=== PATIENT | female | born 1990 | race Caucasian/White ===

== ENCOUNTER 2021-01-19 14:42 | Emergency (ER) | payer OTHER ==
[~2021-01-19] VITALS: Ht 157.5 cm; Wt 66.9 kg
[2021-01-19] MEDS ORDERED: prenatal (15:05)
[2021-01-19] MEDS ORDERED: ZYRTTAB8 PO (15:05)
[2021-01-19 15:35] LABS: BASO % 0.7 % (0.0-1.0); EOS # 0.2 10^3/uL (0.0-0.5); EOS % 5.2 % (0.0-3.0); HEMATOCRIT 40.2 % (36.0-47.0); HEMOGLOBIN 13.3 g/dl (12.0-15.5); LYMPH # 1.6 10^3/uL (1.5-5.0); LYMPH % 35.5 % (24.0-44.0); MEAN CORPUSCULAR HEMOGLOBIN 28.7 pg (27.0-33.0); MEAN CORPUSCULAR HGB CONC 33.1 g/dl (32.0-36.5); MEAN CORPUSCULAR VOLUME 86.6 fl (80.0-96.0); MONO # 0.5 10^3/uL (0.0-0.8); MONO % 10.9 % (2.0-8.0); NEUTROPHILS # 2.1 10^3/uL (1.5-8.5); NEUTROPHILS % 47.5 % (36.0-66.0); PLATELET COUNT, AUTOMATED 214 10^3/uL (150-450); RED BLOOD COUNT 4.64 10^6/uL (4.00-5.40); WHITE BLOOD COUNT 4.4 10^3/uL (4.0-10.0)
[2021-01-19 16:05] LABS: BLOOD UREA NITROGEN 10 MG/DL (7-18); CALCIUM LEVEL 8.5 MG/DL (8.5-10.1); CARBON DIOXIDE LEVEL 30 MEQ/L (21-32); CHLORIDE LEVEL 107 MEQ/L (98-107); GLOMERULAR FILTRATION RATE > 60.0 (>60); GLUCOSE, FASTING 82 MG/DL (70-100); HCG, SERUM QUANTITATIVE 2 MIU/ML; POTASSIUM SERUM 3.6 MEQ/L (3.5-5.1); SODIUM LEVEL 139 MEQ/L (136-145)
--- NOTE | 2021-01-19 18:30 | REP ---
INDICATION: bleeding. COMPARISON: None. TECHNIQUE: Transvesical and transvaginal FINDINGS: The uterus measures 8.3 x 3.8 x 5.6 cm. There are no masses. The endometrial echo complex is unremarkable appearing measuring 1 cm in its greatest thickness. The right ovary measures 3.3 x 1.4 x 2.5 cm and is within normal limits in RI 0.71. Incidental note is made of an involuted follicle within the right ovary measuring a cm. Left ovary measures 4 x 1 x 1.7 cm and is within normal limits with an RI 0.56. Urinary bladder measures 5 x 2 x 3 cm. IMPRESSION: Unremarkable pelvic ultrasound <Electronically signed by Johnny Mancera > 01/19/21 [id number]
[2021-01-19 19:16] VITALS: BP 128/62
== END 2021-01-19 19:17 | disposition home or self-care (01) ==
LOC: M ED 14:42
DX: O20.0 Threatened abortion (principal); Z3A.00 Weeks of gestation of pregnancy not specified; O24.119 Pre-existing type 2 diabetes mellitus, in pregnancy, unspecified trimester

== ENCOUNTER → 2021-01-21 | Outpatient (CLI) | payer OTHER ==
[~2021-01-21] MED LIST: ZYRTTAB8 PO; prenatal
== END ==
LOC: M LAB 17:03
PROVIDERS: ATTEND Physician Assistant
DX: O20.0 Threatened abortion (principal)

== ENCOUNTER 2021-10-30 13:15 | Inpatient (IN) | payer OTHER ==
[~2021-10-30] VITALS: Ht 157.5 cm; Wt 72.9 kg
[2021-10-30] VITALS (16 sets, daily range): BP systolic 118–151; BP diastolic 69–89
[2021-10-30] MEDS ORDERED: ACET325C5 PO (13:58)
[2021-10-30] MEDS ORDERED: HOME MED LIST COMPLETE! XX SCH (14:00)
[2021-10-30] MEDS ORDERED: PRENTAB9 PO (14:07)
[2021-10-30] MEDS ORDERED: ACET500P3 PO (14:07)
[2021-10-30] MEDS ORDERED: METHYLERGONOVINE MALEATE 0.2 MG/ML VIAL (J2210) IM PRN (15:15)
[2021-10-30] MEDS ORDERED: OXYTOCIN DRIP 30 UNITS in IV 1 EA IV PRN (15:15)
[2021-10-30] MEDS ORDERED: LIDOCAINE 1% MDV 20ML VIAL INFIL PRN (15:15)
[2021-10-30 16:10] LABS: HEMATOCRIT 42.3 % (36.0-47.0); HEMOGLOBIN 13.9 g/dl (12.0-15.5); MEAN CORPUSCULAR HEMOGLOBIN 29.1 pg (27.0-33.0); MEAN CORPUSCULAR HGB CONC 32.9 g/dl (32.0-36.5); MEAN CORPUSCULAR VOLUME 88.7 fl (80.0-96.0); PLATELET COUNT, AUTOMATED 106 10^3/uL (150-450); RED BLOOD COUNT 4.77 10^6/uL (4.00-5.40); WHITE BLOOD COUNT 5.7 10^3/uL (4.0-10.0)
[2021-10-30] MEDS: OXYTOCIN DRIP 30 UNITS in IV 1 EA IV SCH (17:47)
[2021-10-30] MEDS: LR 1,000 ML IV SCH (17:47)
[2021-10-30] MEDS ORDERED: BUTORPHANOL 2 MG/ML INJ (J0595) IV ONE (20:35)
[2021-10-30] MEDS ORDERED: PROMETHAZINE 25MG/ML 1ML VIAL IV ONE (20:35)
[2021-10-30] MEDS ORDERED: FIORICET TAB PO ONE (20:35)
[2021-10-31] MEDS: OXYTOCIN DRIP 30 UNITS in IV 1 EA IV SCH (02:02)
[2021-10-31] MEDS: LR 1,000 ML IV SCH ×2 (03:16→06:17)
[2021-10-31] MEDS ORDERED: FENTANYL 2MCG/ML ROPIVACAINE 0.2% IN 0.9% NACL 100ML IVBAG As Ordered ONE (05:53)
[2021-10-31] MEDS ORDERED: ePHEDrine SULFATE 25 MG/5 ML(5MG/ML) SYRINGE IV PRN (06:05)
[2021-10-31] MEDS ORDERED: diphenhydrAMINE 50MG/ML VIAL (J1200) IV PRN (06:05)
[2021-10-31] MEDS ORDERED: ONDANSETRON 4MG/2ML VIAL IV PRN (06:05)
[2021-10-31] MEDS ORDERED: NALOXONE INJ 0.4MG/1ML VIAL (J2310 PER 1MG) IV PRN (06:05)
[2021-10-31] MEDS ORDERED: LACTATED RINGER'S 1000 ML IV PRN (06:05)
[2021-10-31] MEDS ORDERED: FENTANYL/ROPIVACAINE/NACL BAG 100 ML EPIDURAL SCH (06:05)
[2021-10-31] MEDS ORDERED: EPIDURAL COMMENT XX SCH (06:05)
[2021-10-31] MEDS ORDERED: REFRIGERATOR IV KEYS XX PRN (06:05)
[2021-10-31] MEDS ORDERED: EPIDURAL/PCA KEYS XX PRN (06:05)
[2021-10-31 08:49] LABS: CORD GAS ABE V -2.3; CORD GAS O2 SAT V 86.1 %; CORD GAS PCO2 V 36.7 mmHg; CORD GAS PH V 7.396 UNITS; CORD GAS SBC V 22.3 MEQ/L; CORD GAS TCO2 V 23.1 MEQ/L
[2021-10-31] MEDS ORDERED: RHOGAM 300 MCG (1500 IU) INJ (J2790) IM SCH (08:50)
[2021-10-31] MEDS ORDERED: LR 1,000 ML IV SCH (08:50)
[2021-10-31] MEDS ORDERED: DOCUSATE SODIUM 100MG CAPSULE PO PRN (08:50)
[2021-10-31] MEDS ORDERED: PROMETHAZINE 25 MG TAB PO PRN (08:50)
[2021-10-31] MEDS ORDERED: MEASLES,MUMPS,RUBELLA VACCINE INJ (MMR-II) (90707) SC SCH (08:50)
[2021-10-31] MEDS ORDERED: OXYTOCIN DRIP 30 UNITS in IV 1 EA IV SCH ×4 (08:50)
[2021-10-31] MEDS ORDERED: DIBUCAINE 1% OINTMENT 30GM TOP PRN (08:50)
[2021-10-31 08:53] LABS: CORD GAS ABE A -1.5; CORD GAS HCO3 A 26.5 MEQ/L; CORD GAS O2 SAT A 54.1 %; CORD GAS PH A 7.278 UNITS; CORD GAS PO2 A 27.1 mmHg; CORD GAS SBC A 22.1 MEQ/L; CORD GAS TCO2 A 28.3 MEQ/L
[2021-10-31] MEDS ORDERED: PRENATAL VITAMINS CHEWABLE TABLET PO SCH (09:00)
[2021-10-31] MEDS: PRENATAL VITAMINS CHEWABLE TABLET PO SCH (09:00)
[2021-10-31 10:56] VITALS: BP 134/75
[2021-10-31] MEDS: ACETAMINOPHEN 500 MG TAB PO SCH ×2 (11:51→17:33)
[2021-10-31] MEDS: ONDANSETRON 4MG/2ML VIAL IV PRN ×2 (12:17→22:11)
[2021-10-31] MEDS: IBUPROFEN 800 MG TAB PO SCH ×2 (14:04→22:05)
[2021-10-31 17:55] VITALS: BP 112/69
[2021-11-01] MEDS: ACETAMINOPHEN 500 MG TAB PO SCH ×2 (00:32→06:03)
[2021-11-01] MEDS ORDERED: ACET-683 PO (05:49)
[2021-11-01] MEDS ORDERED: COLA100C5 PO (05:49)
[2021-11-01] MEDS ORDERED: IBUP80TA PO (05:49)
[2021-11-01 06:00] VITALS: BP 121/74
[2021-11-01] MEDS: IBUPROFEN 800 MG TAB PO SCH (06:03)
[2021-11-01 07:48] LABS: HEMATOCRIT 29.2 % (36.0-47.0); MEAN CORPUSCULAR HEMOGLOBIN 29.3 pg (27.0-33.0); MEAN CORPUSCULAR HGB CONC 32.9 g/dl (32.0-36.5); PLATELET COUNT, AUTOMATED 130 10^3/uL (150-450); RED BLOOD COUNT 3.28 10^6/uL (4.00-5.40); WHITE BLOOD COUNT 7.5 10^3/uL (4.0-10.0)
[2021-11-01 07:57] LABS: HEMOGLOBIN 9.6 g/dl (12.0-15.5)
[2021-11-01] MEDS: PRENATAL VITAMINS CHEWABLE TABLET PO SCH (08:46)
== END 2021-11-01 11:23 | disposition home or self-care (01) | DRG 807 ==
LOC: M LDI 13:15 → M OBS 10-31 10:47
PROVIDERS: ADMIT Obstetrics & Gynecology; ATTEND Obstetrics & Gynecology
PROC: 3E033VJ Introduction of Other Hormone into Peripheral Vein, Percutaneous Approach (ICD-10-PCS; 2021-10-30)
PROC: 10E0XZZ Delivery of Products of Conception, External Approach (ICD-10-PCS; principal; 2021-10-31)
DX: O34.219 Maternal care for unspecified type scar from previous cesarean delivery (principal); Z37.0 Single live birth; O24.410 Gestational diabetes mellitus in pregnancy, diet controlled; Z3A.39 39 weeks gestation of pregnancy; O69.81X0 Labor and delivery complicated by cord around neck, without compression, not applicable or unspecified